=== PATIENT | female | born 1970 | race Caucasian/White ===

== ENCOUNTER 2016-12-10 15:51 | Emergency (ER) | payer SELFPAY ==
[2016-12-10 16:23] VITALS: BP 136/92; TEMP 98; O2SAT 96
--- NOTE | 2016-12-10 16:33 | RAD ---
EXAM: Three view(s) of the left foot. INDICATION: Pain. COMPARISON: None. FINDINGS: No acute fracture or dislocation. No radiopaque foreign body is identified. No large soft tissue swelling. IMPRESSION: No acute fracture. No radiopaque foreign body Electronically signed by: Chadwick Hutson MD 12/10/2016 4:32 PM CDT
--- NOTE | 2016-12-10 16:38 | ED.PDOC ---
History of Present Illness - General Chief Complaint: Skin/Abrasion/Tear Stated Complaint: Left foot swelling and redness Time Seen by Provider: 12/10/16 16:17 Source: patient, RN notes reviewed, Vital Signs reviewed Exam Limitations: no limitations - History of Present Illness Initial Comments: Patient cut the top of her left foot a week ago with a piece of glass. Did not get stitches. Now the area is red, swollen and tender. She is concerned there is still a piece of glass in her foot. Timing/Duration: week Severity: moderate Location: feet Improving Factors: nothing Worsening Factors: movement Allergies/Adverse Reactions: Allergies Cyclizine [From Migral] Adverse Reaction (Verified 12/10/16 16:10) Ergotamine [From Migral] Adverse Reaction (Verified 12/10/16 16:10) Home Medications: Ambulatory Orders Duloxetine HCl [Cymbalta] 60 mg PO BID 12/10/16 Sulfa/Trimeth 800/160 (Ds) Tab [Bactrim DS Tab] 1 ea PO BID #10 tab 12/10/16 traZODone HCL [Desyrel] 100 mg PO BEDTIME 12/10/16 Review of Systems - Review of Systems Constitutional: States: no symptoms reported Respiratory: States: no symptoms reported Cardiology: States: no symptoms reported Gastrointestinal/Abdominal: States: no symptoms reported Musculoskeletal: States: no symptoms reported Skin: States: see HPI, other - laceration on top of foot with redness, swelling and tenderness Neurological: States: no symptoms reported. Denies: numbness, paresthesia, tingling Past Medical History (General) - Patient Medical History Hx Seizures: No Hx Stroke: No Hx Dementia: No Hx Asthma: No Hx of COPD: No Hx Cardiac Disorders: No Hx Congestive Heart Failure: No Hx Pacemaker: No Hx Hypertension: No Hx Thyroid Disease: No Hx Diabetes: No Hx Gastroesophageal Reflux: No Hx Renal Disease: No Hx Cancer: No Hx of HIV: No Hx Hepatitis C: No Hx MRSA: No - Vaccination History Hx Tetanus, Diphtheria Vaccination: Yes - 2012 Hx Influenza Vaccination: No Hx Pneumococcal Vaccination: Yes - 2016 - Social History Hx Tobacco Use: Yes Hx Alcohol Use: No Hx Depression: Yes - Female History Patient is a Female of Child Bearing Age (10 -59 yrs old): No Patient : No Family Medical History - Family History Mother Family History: Unknown Living Status: Still Living Physical Exam - Physical Exam General Appearance: Alert, Comfortable, No apparent distress, Well Developed, Well Groomed, Well Hydrated, Well Nourished Extremity: normal range of motion, no pedal edema Neurologic: no motor/sensory deficits, alert, normal mood/affect, oriented x 3 Skin Exam: warm/dry, normal color, other - L foot: 1cm healing laceration on dorsum of foot jut proximal to 1st MTP joint with mild surrounding erythema, swelling and tenderness Skin Problem Location: lower extremities Skin Character: erythema, linear, swelling, tenderness, warm Progress - EKG/XRAY/CT XRAY: L foot: no foreign body Departure - Departure Clinical Impression: Cellulitis of foot without toes, left Time of Disposition: 16:41 Disposition: Discharge to Home or Self Care Condition: Good Departure Forms: ED Discharge - Pt. Copy, Patient Portal Self Enrollment Instructions: DI for Cellulitis -- Adult Diet: resume usual diet Activity: increase activity as tolerated Prescriptions: Sulfa/Trimeth 800/160 (Ds) Tab [Bactrim DS Tab] 1 ea PO BID #10 tab Home Medications: Ambulatory Orders Duloxetine HCl [Cymbalta] 60 mg PO BID 12/10/16 Sulfa/Trimeth 800/160 (Ds) Tab [Bactrim DS Tab] 1 ea PO BID #10 tab 12/10/16 traZODone HCL [Desyrel] 100 mg PO BEDTIME 12/10/16
== END 2016-12-10 16:51 | disposition home or self-care (01) ==
LOC: ER 15:51
DX: L03.116 Cellulitis of left lower limb (principal); F32.9 Major depressive disorder, single episode, unspecified; Z88.8 Allergy status to other drugs, medicaments and biological substances; Z87.891 Personal history of nicotine dependence

== ENCOUNTER 2017-03-31 23:17 | Emergency (ER) | payer SELFPAY ==
[2017-03-31 23:37] VITALS: TEMP 97.3; O2SAT 98
[2017-03-31] MEDS ORDERED: SUMAtriptan SUCCINATE INJ 6 MG/0.5 ML VIAL SUBCU ONE (23:43)
--- NOTE | 2017-03-31 23:46 | ED.PDOC ---
History of Present Illness - General Chief Complaint: Headache Stated Complaint: high B/P, headache, dizzy Time Seen by Provider: 03/31/17 23:28 Source: patient, RN notes reviewed, Vital Signs reviewed Exam Limitations: no limitations - History of Present Illness Initial Comments: Patient came to ER due to her blood pressure being elevated for the past 3 days. She also has had a migraine for the past 3 days. BP @ home was 184/114. GARVEY is left frontal and feels the same as prior migraines. She has been under a lot of stress in the past 2 months. Timing/Duration: constant - 3 days Quality: severe - 10/10, constant, throbbing Head Injury Location: frontal Recent Head Trauma: no recent headache/trauma, frequent headaches - hx of migraines Improving Factors: nothing Worsening Factors: nothing Associated Symptoms: denies symptoms Allergies/Adverse Reactions: Allergies Cyclizine [From Migral] Adverse Reaction (Verified 03/31/17 23:37) Ergotamine [From Migral] Adverse Reaction (Verified 03/31/17 23:37) Home Medications: Ambulatory Orders Duloxetine HCl [Cymbalta] 120 mg PO DAILY 12/10/16 traZODone HCL [Desyrel] 200 mg PO BEDTIME PRN 12/10/16 Review of Systems - Review of Systems Constitutional: States: no symptoms reported EENTM: States: other - Photophobia Respiratory: States: no symptoms reported Cardiology: States: other - elevated blood pressure. Denies: chest pain, edema , palpitations, syncope Gastrointestinal/Abdominal: States: no symptoms reported Musculoskeletal: States: no symptoms reported Skin: States: no symptoms reported Neurological: States: depressed, emotional problems, headache. Denies: numbness , paresthesia, tingling, weakness All other Systems: No Change from Baseline Past Medical History (General) - Patient Medical History Hx Seizures: No Hx Stroke: No Hx Dementia: No Hx Asthma: No Hx of COPD: No Hx Cardiac Disorders: No Hx Congestive Heart Failure: No Hx Pacemaker: No Hx Hypertension: No Hx Thyroid Disease: No Hx Diabetes: No Hx Gastroesophageal Reflux: No Hx Renal Disease: No Hx Cancer: No Hx of HIV: No Hx Hepatitis C: No Hx MRSA: No Surgical History: no surgical history - Vaccination History Hx Tetanus, Diphtheria Vaccination: Yes Hx Influenza Vaccination: No Hx Pneumococcal Vaccination: Yes - 2016 Immunizations Up to Date: Yes - Social History Hx Tobacco Use: Yes Hx Chewing Tobacco Use: No Hx Alcohol Use: No Hx Substance Use: No Hx Substance Use Treatment: No Hx Depression: Yes Feels Threatened In Home Enviroment: No Feels Threatened In a Relationship: No Hx Physical Abuse: No Hx Emotional Abuse: No Hx Suspected Abuse: No - Female History Patient : No Family Medical History - Family History Mother Family History: Unknown Living Status: Still Living Physical Exam - Physical Exam General Appearance: Alert, No apparent distress, Well Developed, Well Groomed, Well Hydrated, Well Nourished Eyes, Ears, Nose, Throat Exam: PERRL/EOMI, normal ENT inspection Neck: supple, normal inspection Cardiovascular/Chest: regular rate, rhythm, no edema, no gallop, no murmur Respiratory: lungs clear, normal breath sounds, no respiratory distress, no accessory muscle use Extremity: normal range of motion, normal inspection, no pedal edema Mental Status: alert, oriented x 3, depressed affect medical record coder Exam: normal hearing, normal speech, PERRL, other - CN 2-12 are grossly intact Coordination/Gait: normal gait Motor/Sensory: no motor deficit, no sensory deficit Skin Exam: warm/dry, normal color Comments: Vital Signs 03/31/17 23:30 Temperature 97.3 F L Pulse Rate [ 63 monitor] Respiratory 18 Rate Blood Pressure 178/89 [Left Arm] O2 Sat by Pulse 98 Oximetry Progress - Progress Progress: 03/31/17 23:48 Her elevated blood pressure is most likely due to her migraine. Will start with Imitrex 6mg SQ as this has worked for her in the past. 04/01/17 00:17 No improvement in GARVEY with Imitrex. Now nauseated. 04/01/17 01:15 Gave Zofran 8mg SL and Dilaudid 1mg IM GARVEY now 3/10 and BP is 141/76 04/01/17 01:16 Departure - Departure Clinical Impression: Elevated blood pressure reading Migraine Qualifiers: Migraine type: with aura Status migrainosus presence: without status migrainosus Intractability: not intractable Qualified Code(s): G43.109 - Migraine with aura, not intractable, without status migrainosus Time of Disposition: 01:16 Disposition: Discharge to Home or Self Care Condition: Good Departure Forms: ED Discharge - Pt. Copy, Patient Portal Self Enrollment Instructions: TAZ for Migraine Diet: resume usual diet Activity: increase activity as tolerated Home Medications: Ambulatory Orders Duloxetine HCl [Cymbalta] 120 mg PO DAILY 12/10/16 traZODone HCL [Desyrel] 200 mg PO BEDTIME PRN 12/10/16
[2017-04-01] MEDS ORDERED: HYDROmorphone HCL INJ 2 MG/ML VIAL IM ONE (00:18)
[2017-04-01] MEDS ORDERED: ONDANSETRON ODT 8 MG TAB SL ONE (00:18)
[2017-04-01 01:12] VITALS: BP 141/76
== END 2017-04-01 01:22 | disposition home or self-care (01) ==
LOC: ER 23:17
DX: G43.109 Migraine with aura, not intractable, without status migrainosus (principal); R03.0 Elevated blood-pressure reading, without diagnosis of hypertension; Z88.8 Allergy status to other drugs, medicaments and biological substances
CPT/HCPCS: J1170; J3030

== ENCOUNTER 2017-09-10 15:30 | Emergency (ER) | payer SELFPAY ==
[2017-09-10 16:32] VITALS: TEMP 98.8
--- NOTE | 2017-09-10 16:56 | ED.PDOC ---
History of Present Illness - General Chief Complaint: Back Pain or Injury Stated Complaint: back pain Time Seen by Provider: 09/10/17 16:55 - History of Present Illness Initial Comments: Livier Dobson 47 y/o female stated had been having dull ache on her lower back -lumbar area -for the last one week and not getting better.Had tried hot packs, exercise balls the last several days pain not going away.Had history of back injury after falling off a ladder when she was 25 y/o-1994 and had MRI lumbar spine done 1997 and showed disc herniation was given 3 steroid epidural shot on her back at that time. Had bearble back pains thru the years and got worse the last few weeks.Denies weakneess,numbness,fever ,bowel or bladder dysfunction. Timing/Duration: constant, other - 7 days Quality/Severity: dullness Back Pain Location: lumbar spine Back Pain Radiation: buttocks Method of Injury/Prior Injury: other - see hpi Improving Factors: rest Worsening Factors: movement Associated Symptoms: lower back pain Allergies/Adverse Reactions: Allergies Cyclizine [From Migral] Adverse Reaction (Verified 03/31/17 23:37) Ergotamine [From Migral] Adverse Reaction (Verified 03/31/17 23:37) Home Medications: Ambulatory Orders traZODone HCL [Desyrel] 200 mg PO BEDTIME PRN 12/10/16 Acetaminophen W/ Codeine [Tylenol w/Codeine 300-30 mg] 1 tab PO TID PRN #20 tab 09/10/17 Gabapentin 300 mg PO BID #20 cap 09/10/17 Gabapentin [Neurontin] 09/10/17 Methocarbamol [Robaxin] 750 mg PO BID #14 tab 09/10/17 hydrOXYzine HCl [Atarax] 50 mg PO TID 09/10/17 predniSONE 20 mg PO DAILY #10 tab 09/10/17 Review of Systems - Review of Systems Constitutional: States: no symptoms reported EENTM: States: no symptoms reported Respiratory: States: no symptoms reported Cardiology: States: no symptoms reported Gastrointestinal/Abdominal: States: no symptoms reported Genitourinary: States: no symptoms reported Musculoskeletal: States: see HPI, back pain Skin: States: no symptoms reported Neurological: States: no symptoms reported All other Systems: Reviewed and Negative, No Change from Baseline Past Medical History (General) - Patient Medical History Hx Seizures: No Hx Stroke: No Hx Dementia: No Hx Asthma: No Hx of COPD: No Hx Cardiac Disorders: No Hx Congestive Heart Failure: No Hx Pacemaker: No Hx Hypertension: No Hx Thyroid Disease: No Hx Diabetes: No Hx Gastroesophageal Reflux: No Hx Renal Disease: No Hx Cancer: No Hx of HIV: No Hx Hepatitis C: No Hx MRSA: No Surgical History: no surgical history - Vaccination History Hx Tetanus, Diphtheria Vaccination: Yes Hx Influenza Vaccination: No Hx Pneumococcal Vaccination: Yes - 2016 - Social History Hx Tobacco Use: Yes Hx Chewing Tobacco Use: No Hx Alcohol Use: No Hx Substance Use: No Hx Substance Use Treatment: No Hx Depression: Yes Hx Physical Abuse: No Hx Emotional Abuse: No Hx Suspected Abuse: No - Female History Patient : No Family Medical History - Family History Mother Family History: Unknown Living Status: Still Living Physical Exam - Physical Exam General Appearance: Alert, Other - in pain Eyes, Ears, Nose, Throat Exam: PERRL/EOMI, normal ENT inspection Neck Exam: non-tender, full range of motion, normal alignment, normal inspection Cardiovascular/Respiratory: regular rate, rhythm, no M/R/G, normal peripheral pulses, normal breath sounds Peripheral Pulses: radial,right: 2+, radial,left: 2+ Gastrointestinal/Abdominal: normal bowel sounds, non tender, soft, no organomegaly Back Exam: decreased range of motion - lumbar spine, muscle spasm - paraspinous muscle lumbar Neurologic: no motor/sensory deficits, alert, oriented x 3, other - Knee jerk reflex 2+;Straight leg raising test negative bilaterally Progress - Progress Progress: 09/10/17 17:24 Last Vital Signs Temp 98.8 F 09/10/17 16:28 Pulse 94 H 09/10/17 16:28 Resp 22 09/10/17 16:28 BP 123/75 09/10/17 16:28 Pulse Ox 94 L 09/10/17 16:28 - EKG/XRAY/CT XRAY: l- spine degenerative changes Departure - Departure Clinical Impression: Acute low back pain Qualifiers: Back pain laterality: bilateral Sciatica presence: unspecified whether sciatica present Qualified Code(s): M54.5 - Low back pain Degenerative arthritis of lumbar spine Qualifiers: Spinal osteoarthritis complication: unspecified spinal osteoarthritis Qualified Code(s): M47.816 - Spondylosis without myelopathy or radiculopathy, lumbar region Time of Disposition: 18:17 Disposition: Discharge to Home or Self Care Condition: Fair Departure Forms: ED Discharge - Pt. Copy, Patient Portal Self Enrollment Instructions: DI for Low Back Pain Prescriptions: Acetaminophen W/ Codeine [Tylenol w/Codeine 300-30 mg] 1 tab PO TID PRN #20 tab PRN Reason: Pain Gabapentin 300 mg PO BID #20 cap Methocarbamol [Robaxin] 750 mg PO BID #14 tab predniSONE 20 mg PO DAILY #10 tab Home Medications: Ambulatory Orders traZODone HCL [Desyrel] 200 mg PO BEDTIME PRN 12/10/16 Acetaminophen W/ Codeine [Tylenol w/Codeine 300-30 mg] 1 tab PO TID PRN #20 tab 09/10/17 Gabapentin 300 mg PO BID #20 cap 09/10/17 Gabapentin [Neurontin] 09/10/17 Methocarbamol [Robaxin] 750 mg PO BID #14 tab 09/10/17 hydrOXYzine HCl [Atarax] 50 mg PO TID 09/10/17 predniSONE 20 mg PO DAILY #10 tab 09/10/17 Additional Instructions: NEED TO SIGN UP WITH PRIMARY MD AT [facility] [place] and referral to back specialist
[2017-09-10] MEDS: DEXAMETHASONE INJ 10 MG/ML VIAL IM ONE (17:57)
[2017-09-10] MEDS: MORPHINE SULFATE INJ 10 MG/ML VIAL IM ONE (17:58)
--- NOTE | 2017-09-10 17:58 | RAD ---
EXAM DESCRIPTION: Lumbar Spine 3 Views CLINICAL HISTORY: pain COMPARISON: Lumbar spine CT dated 28 March 2013 TECHNIQUE: AP/lateral/coned-down lateral FINDINGS: The lumbar vertebral bodies are in good AP alignment. Loss of disc height is observed at the L5-S1 level. Vacuum disc phenomena is observed at this level. Calcific atherosclerotic changes observed in the abdominal aorta without evidence of aneurysmal dilatation. An IUD is observed in the uterus. No fracturing is detected. IMPRESSION: Degenerative changes are observed at the L5-S1 level. No fracturing is detected. Electronically signed by: Saul Thomas MD 09/10/2017 5:57 PM [facility]
[2017-09-10] MEDS: METHOCARBAMOL 750 MG TAB PO ONE (18:04)
[2017-09-10 18:07] VITALS: BP 133/82; O2SAT 95
== END 2017-09-10 18:40 | disposition home or self-care (01) ==
LOC: ER 15:30
DX: M47.816 Spondylosis without myelopathy or radiculopathy, lumbar region (principal)
CPT/HCPCS: 72100; J1100; J2270

== ENCOUNTER 2017-12-22 15:27 | Emergency (ER) | payer SELFPAY ==
--- NOTE | 2017-12-22 15:57 | ED.PDOC ---
History of Present Illness - General Chief Complaint: Back Pain or Injury Stated Complaint: back pain Time Seen by Provider: 12/22/17 15:36 Source: patient Exam Limitations: no limitations - History of Present Illness Initial Comments: Livier Dobson 47 y/o female with history of chronic low back pain as a result of falling off ladder when she was 25 y/o in 1994 and had MRI done 1997 showing disc herniation and had received 3 epidural injection on her back.Stated that they moved to a new apartment and had lifted much of her belongings 4 days ago her back got sore a day later but today with constant sharp to dull ache lower back non radiating.Denies bowel or bladder dysfunction,nofever ,weight loss.No primary md.No hematuria or dysuria ,no constipation/diarrhea.Good bowel movement. Timing/Duration: constant, other - see hpi Quality/Severity: dullness, sharpness Back Pain Location: lumbar spine Back Pain Radiation: other - NONE Method of Injury/Prior Injury: prior injury - see hpi Improving Factors: rest Worsening Factors: movement Associated Symptoms: muscle spasms Allergies/Adverse Reactions: Allergies Cyclizine [From Migral] Adverse Reaction (Verified 03/31/17 23:37) Ergotamine [From Migral] Adverse Reaction (Verified 03/31/17 23:37) Home Medications: Ambulatory Orders traZODone HCL [Desyrel] 200 mg PO BEDTIME PRN 12/10/16 Acetaminophen W/ Codeine [Tylenol w/Codeine 300-30 mg] 1 tab PO TID PRN #20 tab 09/10/17 Gabapentin 300 mg PO BID #20 cap 09/10/17 Gabapentin [Neurontin] 09/10/17 Methocarbamol [Robaxin] 750 mg PO BID #14 tab 09/10/17 hydrOXYzine HCl [Atarax] 50 mg PO TID 09/10/17 predniSONE 20 mg PO DAILY #10 tab 09/10/17 Acetaminophen W/ Codeine [Tylenol w/Codeine 300-30 mg] 1 tab PO TID PRN #3 tab 12/22/17 Baclofen 20 mg PO BID #10 tab 12/22/17 Gabapentin 300 mg PO BID #14 cap 12/22/17 predniSONE 10 mg PO BID #14 tab 12/22/17 Review of Systems - Review of Systems Constitutional: States: no symptoms reported EENTM: States: no symptoms reported Respiratory: States: no symptoms reported Cardiology: States: no symptoms reported Gastrointestinal/Abdominal: States: no symptoms reported Musculoskeletal: States: see HPI Neurological: States: no symptoms reported Past Medical History (General) - Patient Medical History Hx Seizures: No Hx Stroke: No Hx Dementia: No Hx Asthma: No Hx of COPD: No Hx Cardiac Disorders: No Hx Congestive Heart Failure: No Hx Pacemaker: No Hx Hypertension: No Hx Thyroid Disease: No Hx Diabetes: No Hx Gastroesophageal Reflux: No Hx Renal Disease: No Hx Cancer: No Hx of HIV: No Hx Hepatitis C: No Hx MRSA: No Surgical History: no surgical history - Vaccination History Hx Tetanus, Diphtheria Vaccination: Yes Hx Influenza Vaccination: No Hx Pneumococcal Vaccination: Yes - 2016 - Social History Hx Tobacco Use: Yes Hx Chewing Tobacco Use: No Hx Alcohol Use: No Hx Substance Use: No Hx Substance Use Treatment: No Hx Depression: Yes Hx Physical Abuse: No Hx Emotional Abuse: No Hx Suspected Abuse: No - Activities of Daily Living Patient Lives Alone: No - mom - Female History Patient : No Family Medical History - Family History Mother Family History: Unknown Living Status: Still Living Physical Exam - Physical Exam General Appearance: Alert, No apparent distress Eyes, Ears, Nose, Throat Exam: normal ENT inspection Neck Exam: full range of motion, normal alignment, normal inspection Cardiovascular/Respiratory: regular rate, rhythm, no M/R/G, normal peripheral pulses, normal breath sounds Peripheral Pulses: radial,right: 2+, radial,left: 2+ Gastrointestinal/Abdominal: non tender, soft Back Exam: no CVA tenderness, no vertebral tenderness, muscle spasm - lumbar area muscle Extremity Exam: non-tender, no pedal edema Neurologic: no motor/sensory deficits, alert, oriented x 3, other - dtr-knee jerk 2+ bilaterally;SLR-negative bilaterally Skin Exam: normal color, warm/dry Progress - Progress Progress: 12/22/17 16:01 Vital Signs - 8 hr 12/22/17 15:32 Temperature 97.6 F Pulse Rate [ 84 left brachial] Respiratory 20 Rate Blood Pressure 151/78 [left brachial] O2 Sat by Pulse 96 Oximetry Departure - Departure Clinical Impression: Acute exacerbation of chronic low back pain Time of Disposition: 16:05 Disposition: Discharge to Home or Self Care Condition: Fair Departure Forms: ED Discharge - Pt. Copy, Patient Portal Self Enrollment Instructions: DI for Low Back Pain Prescriptions: Acetaminophen W/ Codeine [Tylenol w/Codeine 300-30 mg] 1 tab PO TID PRN #3 tab PRN Reason: Pain Baclofen 20 mg PO BID #10 tab Gabapentin 300 mg PO BID #14 cap predniSONE 10 mg PO BID #14 tab Home Medications: Ambulatory Orders traZODone HCL [Desyrel] 200 mg PO BEDTIME PRN 12/10/16 Acetaminophen W/ Codeine [Tylenol w/Codeine 300-30 mg] 1 tab PO TID PRN #20 tab 09/10/17 Gabapentin 300 mg PO BID #20 cap 09/10/17 Gabapentin [Neurontin] 09/10/17 Methocarbamol [Robaxin] 750 mg PO BID #14 tab 09/10/17 hydrOXYzine HCl [Atarax] 50 mg PO TID 09/10/17 predniSONE 20 mg PO DAILY #10 tab 09/10/17 Acetaminophen W/ Codeine [Tylenol w/Codeine 300-30 mg] 1 tab PO TID PRN #3 tab 12/22/17 Baclofen 20 mg PO BID #10 tab 12/22/17 Gabapentin 300 mg PO BID #14 cap 12/22/17 predniSONE 10 mg PO BID #14 tab 12/22/17 Additional Instructions: NEED TO SIGN UP WITH PRIMARY MD [facility]
[2017-12-22 15:58] VITALS: TEMP 97.6
[2017-12-22] MEDS ORDERED: ORPHENADRINE CITRATE 30 MG/ML AMP IV ONE (16:00)
[2017-12-22] MEDS ORDERED: predniSONE 10 MG TAB PO ONE (16:00)
[2017-12-22] MEDS ORDERED: KETOROLAC TROMETHAMINE INJ 30 MG/ML VIAL IM ONE (16:00)
[2017-12-22] MEDS ORDERED: HYDROcodone 10MG/APAP 325MG 1 EA TAB PO ONE (16:00)
[2017-12-22] MEDS ORDERED: ORPHENADRINE CITRATE 30 MG/ML AMP IM ONE (16:27)
[2017-12-22 17:09] VITALS: BP 121/76; O2SAT 98
== END 2017-12-22 16:55 | disposition home or self-care (01) ==
LOC: ER 15:27
DX: M54.5 Low back pain (principal); G89.29 Other chronic pain; Z79.899 Other long term (current) drug therapy; Z87.891 Personal history of nicotine dependence
CPT/HCPCS: J1885; J2360; J7512